=== PATIENT | female | born 1960 | race Caucasian/White ===

== ENCOUNTER 2023-07-19 23:52 | Emergency (ER) | payer MEDICARE, MEDICAID, SELFPAY ==
--- NOTE | ~2023-07-19 | CT_ITS ---
EXAMINATION: NONCONTRAST HEAD CT NONCONTRAST CERVICAL SPINE CT INDICATION INFORMATION: Fall COMPARISON: None TECHNIQUE: Separate noncontrast CT examinations of the head and cervical spine were performed. Coronal head CT images and coronal and sagittal cervical spine images were created at the technologist workstation. DLP: 1009 mGy-cm DOSE LOWERING TECHNIQUES: This CT examination was performed using dose optimization techniques as appropriate, variously including the following: - Automated exposure control - Adjustment of mA and/or kV according to patient size (this includes techniques or standardized protocols for targeted exams were dose is matched to indication/reason for exam; i.e. extremities or head) - Use of iterative reconstruction technique FINDINGS: Head: There is no evidence of acute intracranial hemorrhage or territorial infarction. No abnormal mass-effect or midline shift is seen. Worthy to white matter differentiation is well preserved. No extra-axial fluid collections are identified. The ventricles are normal in size. There is no abnormal attenuation within the brain parenchyma. Mildly displaced nasal bone fracture noted. The mastoid air cells and visualized portions of the paranasal sinuses are well-aerated. Cervical spine: There is anatomic alignment of the vertebral bodies and posterior elements. There is degenerative change at the atlantodens articulation. Vertebral body heights are maintained. Mild multilevel disc space narrowing along with moderate degenerative endplate change. Mild multilevel facet arthropathy. No evidence of acute fracture. No prevertebral soft tissue swelling. Visualized portions of the lung apices are unremarkable. There is a left thyroid nodule measuring approximately 1.4 cm. Incidental thyroid nodules up to 1.5 cm in diameter in patients 35 years of age or older are statistically overwhelmingly not clinically significant and no followup imaging recommended. Reference: J Am Ragini Radiol 2015 b; 12(2): 143-50. CT/CT cervical spine wo IV con IMPRESSION: HEAD: 1. No acute intracranial findings. 2. Mildly displaced nasal bone fracture. CERVICAL SPINE: 1. No acute findings identified. 2. Mild to moderate degenerative changes
[2023-07-20] VITALS: BP 117/62; PULSE 80; BMI 24.0
[2023-07-20 00:22] VITALS: BP 114/63; PULSE 74; RESP 20; TEMP 36.8; O2SAT 100
--- NOTE | 2023-07-20 00:23 | ED_ITS ---
HPI - Fall General Chief Complaint: Fall Stated Complaint: FALL, EPISTAXIS Time Seen by Provider: 07/20/23 00:23 Source: patient Mode of arrival: EMS Limitations: no limitations History of Present Illness HPI Narrative: Patient's history of osteoporosis was getting zoledronic IV infusion for the 1st time received at 11:00 o'clock was feeling weak after that went to sleep woke up to the bathroom felt lightheaded and fell hitting her left side of the face to the ground complaining of pain at left maxillary area and neck had small amount of epistaxis from left nostril no active bleeding now, no other injuries Related Data Allergies Allergy/AdvReac Type Severity Reaction Status Date / Time Penicillins Allergy Anaphylaxis Verified 07/20/23 00:23 Review of Systems 2 Review of Systems: Yes all other systems are reviewed and are negative [facility] Social History Social History Advance Directives: No Advance Directives Information Provided: Yes Physical Exam 2 Vital Signs: Vital Signs: Last Vital Signs Temp 98.2 F 07/20/23 00:22 Pulse 74 07/20/23 00:22 Resp 20 07/20/23 00:22 BP 114/63 07/20/23 00:22 Pulse Ox 100 07/20/23 00:22 BMI result Body Mass Index 24.0 Appearance: Alert. Oriented X3. No acute distress. Eyes: PERRLA, No Nystagmus ecchymosis left periorbital area ENT: Pharynx normal. Oral Mucosa moist dried left nostril blood, intact teeth Neck: Normal inspection. Neck supple. Diffuse cervical spine tenderness no deformity CVS: Normal heart rate and rhythm. Pulses normal. Respiratory: No respiratory distress. Equal air entry bilateral, no wheezing/rales/rhonchi Abdomen: Soft and nontender. Bowel sounds are present, no mass palpable, no CVA tenderness Skin: Skin warm and dry. Normal skin color. Normal skin turgor. Extremities: No lower extremity edema. No calf tenderness Neuro: Oriented X 3. No motor deficit. No sensory deficit.No cerebellar signs , cranial nerves II-XII intact Medications Administered Discontinued Medications Generic Name Dose Route Start Last Admin Trade Name Freq PRN Reason Stop Dose Admin Sodium Chloride 1,000 mls @ 999 mls/hr 07/20/23 00:57 07/20/23 02:08 Ns IV 07/20/23 01:57 Infused .Q1H1M ONE Infusion Medical Decision Making Medical Decision Making [facility] Narrative: Patient with side effect of zoledronic IV infusion as expected with dizziness and lightheadedness prior to infusion patient was in normal health. CT scan showed minimal displaced nasal fracture vitals are stable labs showed leukocytosis secondary to infusion discharge patient home advised to drink plenty of fluids Differential Diagnosis Differential Diagnoses: The differential diagnosis associated with the presentation includes Vasovagal/medication side effect Lab Data [facility] Lab Attestation statement: I reviewed the patient's lab results. 07/20/23 01:06 07/20/23 01:06 Labs: Lab Results 07/20/23 Range/Units 01:06 WBC 17.8 H (4.8-10.8) X10*3/uL RBC 3.83 L (4.20-5.50) X10*6/uL Hgb 11.4 L (12.0-16.0) g/dl Hct 34.2 L (37.0-47.0) % MCV 89.3 (80.0-98.0) fL MCH 29.8 (27.0-33.0) pg MCHC 33.3 (31.0-35.0) g/dl RDW 12.1 (11.0-16.0) % Plt Count 278 (160-400) X10*3/uL MPV 10.1 (9.4-12.3) fL Immature Gran % (Auto) 0.4 (0.0-0.4) % Neut % (Auto) 90.3 H (45-73) % Lymph % (Auto) 5.1 L (20-40) % [place] % (Auto) 3.5 (2-11) % Eos % (Auto) 0.5 (0-4) % Baso % (Auto) 0.2 (0-2) % Lymph # (Auto) 0.9 L (1.2-4.9) X10*3/uL [place] # (Auto) 0.6 (0.1-1.2) X10*3/uL Eos # (Auto) 0.1 (0.0-0.4) X10*3/uL Baso # (Auto) 0.0 (0.0-0.2) X10*3/uL Abs Immat Gran (auto) 0.07 H (0.00-0.03) X10*3/uL Absolute Neuts (auto) 16.1 H (2.0-8.3) x10*3/uL Absolute Nucleated RBC 0.000 (0.0-0.012) X10*3/uL Nucleated RBC % (auto) 0.0 (0.0-0.2) /100WBC Smear Tech's Comments VERIFIED Sodium 136 (135-145) mmol/L Potassium 3.6 (3.3-5.1) mmol/L Chloride 103 (96-108) mmol/L Carbon Dioxide 27 (22-29) mmol/L Anion Gap 10 L (12-20) BUN 12 (9-16) mg/dL Creatinine 0.80 (0.5-1.4) mg/dL Estim Creat Clear Calc 62.9 Estimated GFR > 60 Random Glucose 122 H (60-115) mg/dL Calcium 8.7 (8.4-10.2) mg/dL Independent Interpretation I performed an independent interpretation of an: CT Scan Interpretation: Nasal fracture Radiology Impression Discussion of test interpretation with radiology: I have reviewed the radiologist's reading. Discharge Plan Discharge Clinical Impression: Nasal bone fracture, Vasovagal episode Patient Disposition: Home, Self-Care Instructions: Nasal Fracture (ED), Syncope (ED) Additional Instructions: Drink plenty of fluids Your symptoms likely happened because of medication side effect Follow with PCP if any concern/fever Interventions: ED Discharge Assessment Last Done: 07/20/23 03:36 Discharge Date/Time: 07/20/23 03:37
[2023-07-20] MEDS: 0.9 % Sodium Chloride 1,000 ML 999 ML IV (01:07)
[2023-07-20 01:15] LABS: Basophils Percent Auto 0.2 % (0-2); Eosinophils Absolute Auto 0.1 X10*3/uL (0.0-0.4); Eosinophils Percent Auto 0.5 % (0-4); Hematocrit 34.2 % (37.0-47.0); Hemoglobin 11.4 g/dl (12.0-16.0); Imm Gran Abs Auto 0.07 X10*3/uL (0.00-0.03); Imm Gran Pct Auto 0.4 % (0.0-0.4); Lymphocytes Absolute Auto 0.9 X10*3/uL (1.2-4.9); Lymphocytes Percent Auto 5.1 % (20-40); MANUAL DIFF FLAG SCAN; Mean Corpuscular HGB Conc 33.3 g/dl (31.0-35.0); Mean Corpuscular Hemoglobin 29.8 pg (27.0-33.0); Mean Corpuscular Volume 89.3 fL (80.0-98.0); Mean Platelet Volume 10.1 fL (9.4-12.3); Monocytes Absolute Auto 0.6 X10*3/uL (0.1-1.2); Monocytes Percent Auto 3.5 % (2-11); Neutrophils Absolute Auto 16.1 x10*3/uL (2.0-8.3); Neutrophils Percent Auto 90.3 % (45-73); Platelet Count 278 X10*3/uL (160-400); Red Blood Count 3.83 X10*6/uL (4.20-5.50); Red Cell Distribution Width 12.1 % (11.0-16.0); SCAN SMEAR FLAG 1; White Blood Count 17.8 X10*3/uL (4.8-10.8)
[2023-07-20 01:27] LABS: Anion Gap 10 (12-20); Blood Urea Nitrogen 12 mg/dL (9-16); Calcium 8.7 mg/dL (8.4-10.2); Carbon Dioxide 27 mmol/L (22-29); Chloride 103 mmol/L (96-108); Creatinine Clr Calc Pharmacy 62.9; Estimated Glomerular Filt Rate > 60; Glucose Random 122 mg/dL (60-115); Potassium 3.6 mmol/L (3.3-5.1); Sodium 136 mmol/L (135-145)
[2023-07-20 01:32] LABS: SLIDE REVIEW VERIFIED
--- NOTE | 2023-07-20 03:20 | PC.NURSE ---
ambulated to bathroom well with no complaints , let provider know
== END 2023-07-20 03:37 | disposition home or self-care (01) ==
PROVIDERS: Emergency Provider Internal Medicine; PCP Family Medicine
DX: R55 Syncope and collapse (principal); S02.2XXA Fracture of nasal bones, initial encounter for closed fracture; W18.39XA Other fall on same level, initial encounter; Y93.89 Activity, other specified; Y92.012 Bathroom of single-family (private) house as the place of occurrence of the external cause; Y99.9 Unspecified external cause status
CPT/HCPCS: 36415; 70450; 72125; 80048; 85025; 96360; 99284